=== PATIENT | male | born 1950 ===

== ENCOUNTER 2017-06-14 11:01 | Inpatient (IN) | payer OTHER ==
[~2017-06-14] VITALS: Ht 167.6 cm; Wt 90.7 kg
[2017-07-12] VITALS (11 sets, daily range): BP systolic 122–159; BP diastolic 71–89
[2017-07-12] MEDS ORDERED: ZOLOFT50 MG ORAL (11:32)
[2017-07-12] MEDS ORDERED: AMLODIPINE-BEN1 EACH ORAL (11:32)
[2017-07-12] MEDS ORDERED: ATORVASTATIN CA80 MG ORAL (11:32)
[2017-07-12] MEDS ORDERED: Bacitracin 50000 Units Vial ONE (12:08)
[2017-07-12] MEDS ORDERED: Ropivacaine 5mg/ml Vial 30ml INJ ONE (12:08)
[2017-07-12] MEDS ORDERED: Thrombin 5000 units TOPIC ONE (12:08)
[2017-07-12] MEDS ORDERED: Gelfoam Absorbable 1gm powder pkt TOPIC ONE (12:08)
[2017-07-12] MEDS ORDERED: Thrombin 5000 units spray kit TOPIC ONE (12:08)
--- NOTE | 2017-07-12 12:13 | Pre-Procedure Note/Attestation ---
Pre-Procedure Note/Attestation Complete Prior to Procedure Planned Procedure: not applicable Procedure Narrative: For L4-5 Anterior Decompression and Stablization Indications for Procedure Pre-Operative Diagnosis: Instability and Disc Herniation L4-5 Attestation I attest that I discussed the nature of the procedure; its benefits; risks and complications; and alternatives (and the risks and benefits of such alternatives ), prior to the procedure, with the patient (or the patient's legal insurance sales representative). I attest that, if there was a reasonable possibility of needing a blood transfusion, the patient (or the patient's legal insurance sales representative) was given the [facility] standardized written summary, pursuant to the Hero Mayte Blood Safety Act ([place] Health and Safety Code # 1645, as amended). I attest that I re-evaluated the patient just prior to the surgery and that there has been no change in the patient's H&P, except as documented below: LEELEE WOODRUFF Jul 12, 2017 12:13
--- NOTE | 2017-07-12 12:13 | Pre-Procedure Note/Attestation ---
Pre-Procedure Note/Attestation Complete Prior to Procedure Planned Procedure: not applicable Procedure Narrative: For L4-5 Anterior Decompression and Stablization Indications for Procedure Pre-Operative Diagnosis: Instability and Disc Herniation L4-5 Attestation I attest that I discussed the nature of the procedure; its benefits; risks and complications; and alternatives (and the risks and benefits of such alternatives ), prior to the procedure, with the patient (or the patient's legal underwriting service representative). I attest that, if there was a reasonable possibility of needing a blood transfusion, the patient (or the patient's legal underwriting service representative) was given the [facility] standardized written summary, pursuant to the Hero Mayte Blood Safety Act ([place] Health and Safety Code # 1645, as amended). I attest that I re-evaluated the patient just prior to the surgery and that there has been no change in the patient's H&P, except as documented below: LEELEE WOODRUFF Jul 12, 2017 12:13
--- NOTE | 2017-07-12 12:13 | Pre-Procedure Note/Attestation ---
Pre-Procedure Note/Attestation Complete Prior to Procedure Planned Procedure: not applicable Procedure Narrative: For L4-5 Anterior Decompression and Stablization Indications for Procedure Pre-Operative Diagnosis: Instability and Disc Herniation L4-5 Attestation I attest that I discussed the nature of the procedure; its benefits; risks and complications; and alternatives (and the risks and benefits of such alternatives ), prior to the procedure, with the patient (or the patient's legal solar manufacturer's representative). I attest that, if there was a reasonable possibility of needing a blood transfusion, the patient (or the patient's legal solar manufacturer's representative) was given the [facility] standardized written summary, pursuant to the Hero Mayte Blood Safety Act ([place] Health and Safety Code # 1645, as amended). I attest that I re-evaluated the patient just prior to the surgery and that there has been no change in the patient's H&P, except as documented below: LEELEE WOODRUFF Jul 12, 2017 12:13
[2017-07-12] MEDS ORDERED: Propofol 200mg/20ml IV ONE ×2 (12:19→13:00)
[2017-07-12] MEDS ORDERED: Heparin 5000 units/ml inj ONE (12:48)
--- NOTE | 2017-07-12 12:56 | Anethesia Preoperative Eval ---
Anesthesia Pre-op PMH/ROS General Date of Evaluation: Jul 12, 2017 Time of Evaluation: 12:51 Anesthesiologist: Yisel ASA Score: ASA 2 Mallampati Score Class I : Soft palate, uvula, fauces, pillars visible Class II: Soft palate, uvula, fauces visible Class III: Soft palate, base of uvula visible Class IV: Only hard plate visible Mallampati Classification: Class II Surgeon: oJse Diagnosis: Lumbar radiculopathy Surgical Procedure: ALDF L4-L5 Anesthesia History: none Family History: no anesthesia problems Allergies: Coded Allergies: No Known Allergies (Unverified , 06/10/17) Medications: see eMAR Past Medical History Cardiovascular: Reports: HTN - stable, Denies: CAD, PR, valve dz, arrhythmia, other Pulmonary: Denies: asthma, COPD, CARLITO, other Gastrointestinal/Genitourinary: Reports: GERD - mild, Denies: CRI, ESRD, other Neurologic/Psychiatric: Reports: depression/anxiety, other - chronic pain, Denies: dementia, CVA, TIA Endocrine: Denies: DM, hypothyroidism, steroids, other HEENT: Reports: cataract (L), cataract (R) - s/p bilateral Sx, Denies: glaucoma, QUILEUTE (L), QUILEUTE (R), other Hematology/Immune: Denies: anemia, DVT, bleeding disorder, other Musculoskeletal/Integumentary: Denies: OA, RA, DJD, DDD, edema, other Other: other - overweight PMH Narrative: as above PSxH Narrative: Bilateral cataracts, posterior lumbar spine Sx Anesthesia Pre-op Phys. Exam Physician Exam Last Vital Signs Date Time Temp Pulse Resp B/P (MAP) Pulse Ox O2 Delivery O2 Flow Rate FiO2 07/12/17 11:11 98.3 62 18 159/77 98 Room Air Constitutional: NAD Neurologic: CN 2-12 intact Cardiovascular: RRR Respiratory: CTA Gastrointestinal: S/NT/ND Airway Exam Mallampati Score: Class II MO: limited Neck: short ROM: limited Teeth: missing Dentures: upper - partial Anesthesia Pre-op A/P Labs see chart Studies Pre-op Studies: EKG - NSR, CXR - WNL Risk Assessment & Plan Assessment: ASA 2 Plan: GA with ETT Status Change Before Surgery: No Pre-Antibiotics Drug: Ancef 2 gr. Given Within 1 Hr of Incision: Yes Time Given: 13:25 TRAN SUTHERLAND M.D. Jul 12, 2017 12:55
--- NOTE | 2017-07-12 12:56 | Anethesia Preoperative Eval ---
Anesthesia Pre-op PMH/ROS General Date of Evaluation: Jul 12, 2017 Time of Evaluation: 12:51 Anesthesiologist: Yisel ASA Score: ASA 2 Mallampati Score Class I : Soft palate, uvula, fauces, pillars visible Class II: Soft palate, uvula, fauces visible Class III: Soft palate, base of uvula visible Class IV: Only hard plate visible Mallampati Classification: Class II Surgeon: Jose Diagnosis: Lumbar radiculopathy Surgical Procedure: ALDF L4-L5 Anesthesia History: none Family History: no anesthesia problems Allergies: Coded Allergies: No Known Allergies (Unverified , 06/10/17) Medications: see eMAR Past Medical History Cardiovascular: Reports: HTN - stable, Denies: CAD, [place], valve dz, arrhythmia, other Pulmonary: Denies: asthma, COPD, CARLITO, other Gastrointestinal/Genitourinary: Reports: GERD - mild, Denies: CRI, ESRD, other Neurologic/Psychiatric: Reports: depression/anxiety, other - chronic pain, Denies: dementia, CVA, TIA Endocrine: Denies: DM, hypothyroidism, steroids, other HEENT: Reports: cataract (L), cataract (R) - s/p bilateral Sx, Denies: glaucoma, CANTWELL (L), CANTWELL (R), other Hematology/Immune: Denies: anemia, DVT, bleeding disorder, other Musculoskeletal/Integumentary: Denies: OA, RA, DJD, DDD, edema, other Other: other - overweight PMH Narrative: as above PSxH Narrative: Bilateral cataracts, posterior lumbar spine Sx Anesthesia Pre-op Phys. Exam Physician Exam Last Vital Signs Date Time Temp Pulse Resp B/P (MAP) Pulse Ox O2 Delivery O2 Flow Rate FiO2 07/12/17 11:11 98.3 62 18 159/77 98 Room Air Constitutional: NAD Neurologic: CN 2-12 intact Cardiovascular: RRR Respiratory: CTA Gastrointestinal: S/NT/ND Airway Exam Mallampati Score: Class II MO: limited Neck: short ROM: limited Teeth: missing Dentures: upper - partial Anesthesia Pre-op A/P Labs see chart Studies Pre-op Studies: EKG - NSR, CXR - WNL Risk Assessment & Plan Assessment: ASA 2 Plan: GA with ETT Status Change Before Surgery: No Pre-Antibiotics Drug: Ancef 2 gr. Given Within 1 Hr of Incision: Yes Time Given: 13:25 TRAN SUTHERLAND M.D. Jul 12, 2017 12:55
--- NOTE | 2017-07-12 12:56 | Anethesia Preoperative Eval ---
Anesthesia Pre-op PMH/ROS General Date of Evaluation: Jul 12, 2017 Time of Evaluation: 12:51 Anesthesiologist: Yisel ASA Score: ASA 2 Mallampati Score Class I : Soft palate, uvula, fauces, pillars visible Class II: Soft palate, uvula, fauces visible Class III: Soft palate, base of uvula visible Class IV: Only hard plate visible Mallampati Classification: Class II Surgeon: Jose Diagnosis: Lumbar radiculopathy Surgical Procedure: ALDF L4-L5 Anesthesia History: none Family History: no anesthesia problems Allergies: Coded Allergies: No Known Allergies (Unverified , 06/10/17) Medications: see eMAR Past Medical History Cardiovascular: Reports: HTN - stable, Denies: CAD, [place], valve dz, arrhythmia, other Pulmonary: Denies: asthma, COPD, CARLITO, other Gastrointestinal/Genitourinary: Reports: GERD - mild, Denies: CRI, ESRD, other Neurologic/Psychiatric: Reports: depression/anxiety, other - chronic pain, Denies: dementia, CVA, TIA Endocrine: Denies: DM, hypothyroidism, steroids, other HEENT: Reports: cataract (L), cataract (R) - s/p bilateral Sx, Denies: glaucoma, CHILKOOT (L), CHILKOOT (R), other Hematology/Immune: Denies: anemia, DVT, bleeding disorder, other Musculoskeletal/Integumentary: Denies: OA, RA, DJD, DDD, edema, other Other: other - overweight PMH Narrative: as above PSxH Narrative: Bilateral cataracts, posterior lumbar spine Sx Anesthesia Pre-op Phys. Exam Physician Exam Last Vital Signs Date Time Temp Pulse Resp B/P (MAP) Pulse Ox O2 Delivery O2 Flow Rate FiO2 07/12/17 11:11 98.3 62 18 159/77 98 Room Air Constitutional: NAD Neurologic: CN 2-12 intact Cardiovascular: RRR Respiratory: CTA Gastrointestinal: S/NT/ND Airway Exam Mallampati Score: Class II MO: limited Neck: short ROM: limited Teeth: missing Dentures: upper - partial Anesthesia Pre-op A/P Labs see chart Studies Pre-op Studies: EKG - NSR, CXR - WNL Risk Assessment & Plan Assessment: ASA 2 Plan: GA with ETT Status Change Before Surgery: No Pre-Antibiotics Drug: Ancef 2 gr. Given Within 1 Hr of Incision: Yes Time Given: 13:25 TRAN SUTHERLAND M.D. Jul 12, 2017 12:55
[2017-07-12] MEDS ORDERED: Zemuron 50mg/5ml Inj IV ONE (13:00)
[2017-07-12] MEDS ORDERED: Midazolam 2mg/2ml Inj ONE (13:00)
[2017-07-12] MEDS ORDERED: Sterile Water Irrig 1000ml IRRIG ONE (13:00)
[2017-07-12] MEDS ORDERED: Neostigmine 1mg/ml 10ml Inj ONE (13:00)
[2017-07-12] MEDS ORDERED: Glycopyrrolate 0.2mg/ml 1ml Vial ONE (13:00)
[2017-07-12] MEDS ORDERED: Succinylcholine 20mg/ml 10ml vial ONE (13:00)
[2017-07-12] MEDS ORDERED: fentaNYL 100 mcg/2 mL IV ONE (13:00)
[2017-07-12] MEDS ORDERED: NS Irrig 1000ml ONE (13:00)
[2017-07-12] MEDS ORDERED: Ketorolac 30mg Inj ONE (13:00)
[2017-07-12] MEDS ORDERED: LR 1000ml ONE (13:00)
[2017-07-12] MEDS ORDERED: Morphine Sulfate 10mg/ml Inj ONE (13:00)
[2017-07-12] MEDS ORDERED: LR 1000ml 1,000 ML IVLG SCH (13:44)
[2017-07-12] MEDS ORDERED: Ketorolac 30mg Inj IV PRN (13:45)
[2017-07-12] MEDS ORDERED: Hydromorphone 0.5mg/0.5ml inj IVP PRN (13:45)
[2017-07-12] MEDS ORDERED: DiphenhydrAMINE 50mg/ml Inj IVP PRN (13:45)
[2017-07-12] MEDS ORDERED: Meperidine 50mg/ml Inj(FOR RIGORS ONLY) IV PRN (13:45)
[2017-07-12] MEDS ORDERED: PCA HYDROmorphone 1mg/ml 30 ML IV ONE (14:46)
--- NOTE | 2017-07-12 14:52 | Operative Note - PDOC ---
Operative Note Operative Note Pre-op Diagnosis: Instability and Disc Herniation L4-5 Procedure: ALIF L4-5 with internal fixation Post-op Diagnosis: same as pre-op Operative Findings: consistent w/pre-op dx studies Surgeon: Jose Machine Plug Shaper: KAYLAN Servin Additional Surgeons: Landa - Vascular Access Anesthesiologist: Yisel Anesthesia: general Specimen: yes Complications: none Condition: stable Estimated Blood Loss: minimal Drains: none Implant(s) used?: Yes - Devante InFix device, LEELEE Zavala Jul 12, 2017 14:52
[2017-07-12] MEDS ORDERED: Acetaminophen 650 MG SUPP RECTAL PRN (15:00)
[2017-07-12] MEDS ORDERED: Norco 5mg/325mg tab ORAL PRN (15:00)
[2017-07-12] MEDS ORDERED: Norco 7.5mg/325mg tab ORAL PRN (15:00)
[2017-07-12] MEDS ORDERED: Naloxone 0.4mg/ml Inj IVP PRN (15:00)
[2017-07-12] MEDS ORDERED: Rate Change PCA 1 Each MISC PRN ×2 (15:00→15:15)
[2017-07-12] MEDS ORDERED: HYDROmorphone 1mg/ml Carpuject IVP PRN (15:00)
[2017-07-12] MEDS ORDERED: PCA Education Pamphlet MISC ONE ×2 (15:00→15:15)
[2017-07-12] MEDS ORDERED: HYDROmorphone 1mg/ml Carpuject SUBQ PRN (15:00)
--- NOTE | 2017-07-12 15:02 | Immediate Post-Op Evaluation ---
Immediate Post-Op Evalulation Immediate Post-Op Evalulation Procedure: ALDF L4-L5 Date of Evaluation: Jul 12, 2017 Time of Evaluation: 15:01 IV Fluids: 1500 Blood Products: none Estimated Blood Loss: 100 Urinary Output: 150 Blood Pressure Systolic: 142 Blood Pressure Diastolic: 68 Pulse Rate: 74 Respiratory Rate: 20 O2 Sat by Pulse Oximetry: 99 Temperature (Fahrenheit): 98.5 Pain Score (1-10): 2 Nausea: No Vomiting: No Complications none Patient Status: reacts, patent, extubated, none Hydration Status: adequate TRAN SUTHERLAND M.D. Jul 12, 2017 15:02
[2017-07-12] MEDS: PCA HYDROmorphone 1mg/ml 30 ML IV PRN (15:22)
--- NOTE | 2017-07-12 16:32 | Diagnostic Imaging Report ---
Indication: Back pain Comparison: None Findings: Fluoroscopic views of the lumbar spine were obtained. Imaging showing localization than discectomy and prosthesis replacement at L4-5 disc. Impression: Intraoperative imaging
--- NOTE | 2017-07-12 18:45 | Operative Note - Dictated ---
DATE OF OPERATION: 07/12/2017 DICTATING PHYSICIAN: Martinez Landa M.D. VASCULAR SURGEON: Martinez Landa M.D. SPINE SURGEON: Kyler Garcia M.D. PREOPERATIVE DIAGNOSIS: Degenerative disk disease. POSTOPERATIVE DIAGNOSIS: Degenerative disk disease. PROCEDURE PERFORMED: Anterior retroperitoneal exposure of L4-L5 vertebral interspace. INDICATIONS: This is a very pleasant gentleman who is seen in my office prior to surgery. He has been carefully explained the risks of vascular surgery including possibility of vascular injury, deep venous thrombosis, and bleeding complications. DESCRIPTION OF FINDINGS: A vertical midline incision was used. A left retroperitoneal approach was used. There was no peritoneal or ureteral violation. There is no vascular injury. Blood loss was less than 50 mL and fluoroscopy was used to confirm the appropriate level prior to instrumentation. DESCRIPTION OF PROCEDURE: The patient was taken to the operating room, general anesthesia was used. Antibiotics were given. The patient's abdomen was prepped and draped. Appropriate time-out procedure was taken. A low vertical midline incision was made below the umbilicus. The anterior fascia was incised longitudinally midline. A plane identified posterior to the left rectus abdominis and developed posterolaterally towards the patient's left. The retroperitoneal space entered below the arcuate line and the peritoneum and ureter mobilized together towards the patient's right exposing the left common iliac artery and vein. The dissection was carried to the left side of left common iliac artery and vein. Overlying lymphatics were ligated with vascular clips. The iliolumbar vein with a small vessel was doubly ligated proximally and distally with vascular clips and divided and this allowed us to retract the left iliac artery and vein towards the patient's right and exposing the anterior surface of L4-L5. The Omni retractor was set in place. Shore blades were placed laterally and then fluoroscopy used to confirm the appropriate level. Instrumentation was then performed at L4-L5 as dictated separately. On completion, the retractors were then removed. The peritoneum and ureter were intact. The iliac vessels were intact. Anterior fascia was then closed using #1 PDS in a running fashion and skin subcutaneous tissue was closed with 3-0 Vicryl and 4-0 Monocryl running subcuticular closure technique. ESTIMATED BLOOD LOSS: Less than 100 mL. COMPLICATIONS: None. Martinez Landa M.D. DR: BOGDAN JOB#: [id number] CC:
--- NOTE | 2017-07-12 18:45 | Operative Note - Dictated ---
DATE OF OPERATION: 07/12/2017 FACILITY: [facility]. SURGEON: Kyler Garcia M.D. CO-SURGEON FOR VASCULAR APPROACH: Martinez Landa M.D. METAL STORAGE WORKER: SANDRO Chaves. ANESTHESIOLOGIST: Fransisco Morillo M.D. ANESTHESIA: General endotracheal with arterial blood pressure monitoring. PREOPERATIVE DIAGNOSES: Spondylolisthesis with flexion,extension, instability at L4-L5 as well as a significant disk bulge causing stenosis and neural foraminal encroachment. POSTOPERATIVE DIAGNOSES: Spondylolisthesis with flexion,extension, instability at L4-L5 as well as a significant disk bulge causing stenosis and neural foraminal encroachment. OPERATIVE PROCEDURE: Left pararectus retroperitoneal approach to the lumbar spine by Dr. Landa using a table fixed frame and reverse tip blades with mobilization of the aorta and vena cava and exposure of the anterior anulus of the L4-L5 lumbar disk. The patient then had an anterior annulotomy, nuclear diskectomy, and partial vertebrectomy along with bilateral neural foraminotomy, and microneurolysis. Open reduction and internal fixation was accomplished with a large footprint infix cage with 12 mm of height and 3+3 degrees of lordosis. Fusion was accomplished with bone protein and autogenous bone harvested during the decompression portion of the procedure. Image intensification was used to place the cages. Pulse oximetry was also used to monitor the vascular status of the lower extremities. The patient was prepped and draped supine on the operating table. A left-sided pararectus incision was made. The rectus was mobilized and the posterior sheath was followed down to the anterior spine. The aorta and vena cava were identified and retracted to expose the whole anterior curvature of the lumbar disk at the L4-L5 level. The center of the disk was marked and AP and lateral x-rays were taken. An anterior annulotomy was done with a 10-blade and the soft disk substance as well as the cartilaginous endplate was then removed progressively from front to back using angled and straight larger to smaller curettes, Kerrisons, and pituitaries. Lordotic distractors that were detachable replaced from side to side beginning at 8 and progressing to 12 mm. Dissection was carried to the back of the vertebral body with the PLL and posterior disk anulus was removed. A bilateral neural foraminotomy was accomplished. The space was distracted up to 12 mm. A 3+3 degrees of lordosis was added to create normal sagittal alignment. The two endplates were then tapped into place. The side struts were inserted, position was checked, and then the side struts were locked by cold welding. Bone protein and autogenous bone that had been harvested was then placed between the two plates. X-rays revealed that there was normal reconstitution of spinal alignment frontal and sagittal plane with good height and good overall lordosis. The wound was closed in layers including anterior posterior rectus sheath, subcutaneous and skin. Blood loss was not significant. The patient was placed in a bulky compression dressing and returned to recovery room in good condition. Kyler Garcia M.D. DR: DYLAN JOB#: [id number] CC:
[2017-07-12] MEDS ORDERED: PCA shift volume MISC SCH (19:00)
[2017-07-12] MEDS: PCA shift volume MISC SCH (19:30)
--- NOTE | 2017-07-12 20:45 | General Progress Note ---
Assessment/Plan Assessment/Plan Instability and Disc Herniation L4-5 ALIF L4-5 with internal fixation lumbar disc disease PLAN 1. incentive spirometry 2. DVT prophylaxis 3. PT evaluation and therapy 4. Hydration 5. Pain management 6. discharge once stable with outpatient follow up Subjective Allergies: Coded Allergies: No Known Allergies (Unverified , 06/10/17) Subjective WDWN NAD clear breath sounds bilaterally without rhonchi or wheeze [id number] without MRG no CCE nonfocal Objective Last 24 Hour Vital Signs Date Time Temp Pulse Resp B/P (MAP) Pulse Ox O2 Delivery O2 Flow Rate FiO2 07/12/17 17:12 14 07/12/17 16:42 14 07/12/17 16:12 14 07/12/17 16:00 97.6 07/12/17 16:00 97.0 63 14 146/85 98 Nasal Cannula 2.0 07/12/17 15:57 14 07/12/17 15:49 97.6 60 14 137/83 98 Nasal Cannula 3.0 07/12/17 15:45 14 07/12/17 15:40 59 16 137/83 98 Nasal Cannula 3.0 07/12/17 15:30 17 07/12/17 15:30 63 21 122/72 100 Nasal Cannula 3.0 07/12/17 15:22 15 07/12/17 15:20 60 18 133/77 100 Nasal Cannula 3.0 07/12/17 15:15 60 19 137/71 100 Nasal Cannula 3.0 07/12/17 15:05 62 16 134/75 100 Simple Mask 6.0 07/12/17 15:02 74 20 99 07/12/17 15:00 62 12 140/73 100 Simple Mask 6.0 07/12/17 14:56 98.9 62 14 141/83 100 Simple Mask 6.0 07/12/17 11:11 98.3 62 18 159/77 98 Room Air Intake and Output 07/12/17 07/13/17 19:00 07:00 Intake Total 1940 ml Output Total 500 ml 200 ml Balance 1440 ml -200 ml Intake Oral 240 ml IV Total 1700 ml Output Urine Total 450 ml 200 ml Estimated Blood Loss 50 ml # Voids 4 Height (Feet): 5 Height (Inches): 6.00 Weight (Pounds): 200 EDGARDO AMOS Jul 12, 2017 20:45
[2017-07-12] MEDS: ceFAZolin sod 1 GM in D5W 55 ML IV SCH (21:42)
[2017-07-13] VITALS: BP 153/84
[2017-07-13 04:00] VITALS: BP 133/77
[2017-07-13] MEDS: ceFAZolin sod 1 GM in D5W 55 ML IV SCH ×2 (05:00→13:51)
[2017-07-13] MEDS: PCA shift volume MISC SCH ×2 (07:23→19:30)
[2017-07-13 08:41] VITALS: BP 149/76
--- NOTE | 2017-07-13 08:44 | 48 Hour Post Anesthesia Eval ---
Post Anesthesia Evaluation Procedure: ALDF L4-L5 Date of Evaluation: Jul 13, 2017 Time of Evaluation: 13:30 Blood Pressure Systolic: 133 0: 77 Pulse Rate: 80 Respiratory Rate: 20 Temperature (Fahrenheit): 98.5 O2 Sat by Pulse Oximetry: 98 Airway: patent Nausea: No Vomiting: No Pain Intensity: 2 Hydration Status: adequate Cardiopulmonary Status: Stable Mental Status/LOC: patient returned to baseline Follow-up Care/Observations: As per surgery Post-Anesthesia Complications: No anesthetic complication Follow-up care needed: N/A NAZARIO GUIDRY M.D. Jul 13, 2017 08:44
--- NOTE | 2017-07-13 09:38 | General Progress Note ---
Assessment/Plan Assessment/Plan Instability and Disc Herniation L4-5 ALIF L4-5 with internal fixation lumbar disc disease PLAN 1. incentive spirometry 2. DVT prophylaxis 3. PT evaluation and therapy 4. Hydration and advance diet per surgery 5. Pain management 6. discharge once stable with outpatient follow up Subjective Allergies: Coded Allergies: No Known Allergies (Unverified , 06/10/17) Subjective WDWN NAD clear breath sounds bilaterally without rhonchi or wheeze [id number] without MRG no CCE nonfocal Objective Last 24 Hour Vital Signs Date Time Temp Pulse Resp B/P (MAP) Pulse Ox O2 Delivery O2 Flow Rate FiO2 07/13/17 08:44 80 20 98 07/13/17 08:41 98.2 80 20 149/76 94 Nasal Cannula 2.0 07/13/17 04:00 98.5 80 20 133/77 98 Nasal Cannula 2.5 07/13/17 04:00 16 07/13/17 00:00 16 07/13/17 00:00 98.3 79 18 153/84 98 Nasal Cannula 2.5 07/12/17 20:00 98.1 71 18 154/89 99 Room Air 07/12/17 20:00 16 07/12/17 17:12 14 07/12/17 16:42 14 07/12/17 16:12 14 07/12/17 16:00 97.6 07/12/17 16:00 97.0 63 14 146/85 98 Nasal Cannula 2.0 07/12/17 15:57 14 07/12/17 15:49 97.6 60 14 137/83 98 Nasal Cannula 3.0 07/12/17 15:45 14 07/12/17 15:40 59 16 137/83 98 Nasal Cannula 3.0 07/12/17 15:30 17 07/12/17 15:30 63 21 122/72 100 Nasal Cannula 3.0 07/12/17 15:22 15 07/12/17 15:20 60 18 133/77 100 Nasal Cannula 3.0 07/12/17 15:15 60 19 137/71 100 Nasal Cannula 3.0 07/12/17 15:05 62 16 134/75 100 Simple Mask 6.0 07/12/17 15:02 74 20 99 07/12/17 15:00 62 12 140/73 100 Simple Mask 6.0 07/12/17 14:56 98.9 62 14 141/83 100 Simple Mask 6.0 07/12/17 11:11 98.3 62 18 159/77 98 Room Air Height (Feet): 5 Height (Inches): 6.00 Weight (Pounds): 200 EDGARDO AMOS Jul 13, 2017 09:38
[2017-07-13] MEDS: Sertraline 50mg tab ORAL SCH (09:59)
[2017-07-13] MEDS: Benazepril 10mg tab ORAL SCH (10:00)
[2017-07-13] MEDS: DiphenhydrAMINE 50mg/ml Inj IVP PRN ×2 (10:00→22:19)
[2017-07-13 12:15] VITALS: BP 154/79
[2017-07-13] MEDS: PCA HYDROmorphone 1mg/ml 30 ML IV PRN (15:27)
[2017-07-13 16:23] VITALS: BP 116/69
[2017-07-13 20:08] VITALS: BP 147/81
[2017-07-13] MEDS: Atorvastatin 80mg tab ORAL SCH (20:40)
[2017-07-13] MEDS: Norco 7.5mg/325mg tab ORAL PRN (20:42)
[2017-07-14] VITALS (7 sets, daily range): BP systolic 125–163; BP diastolic 72–95
[2017-07-14] MEDS: PCA shift volume MISC SCH (07:19)
[2017-07-14] MEDS: Sertraline 50mg tab ORAL SCH (09:05)
[2017-07-14] MEDS: Benazepril 10mg tab ORAL SCH (09:06)
[2017-07-14] MEDS: DiphenhydrAMINE 50mg/ml Inj IVP PRN (09:07)
[2017-07-14] MEDS ORDERED: Tubing IV Secondary IV ONE (11:03)
--- NOTE | 2017-07-14 13:11 | General Surgery Progress Note ---
General Surgery-Progress Note Subjective Procedure Performed ALIF L4-5 with internal fixation Symptoms: improved Objective Last 24 Hour Vital Signs Date Time Temp Pulse Resp B/P (MAP) Pulse Ox O2 Delivery O2 Flow Rate FiO2 07/14/17 12:00 98.9 77 19 155/90 96 Room Air 07/14/17 09:06 132/72 07/14/17 09:05 80 132/72 07/14/17 08:00 98.3 80 17 132/72 94 Room Air 07/14/17 04:39 99.7 72 19 139/77 95 Room Air 07/14/17 04:00 18 07/14/17 00:17 99.1 79 21 142/78 96 Room Air 07/14/17 00:00 18 07/13/17 20:08 99.6 86 20 147/81 96 Room Air 07/13/17 20:00 18 07/13/17 16:23 97.8 75 20 116/69 96 Room Air 07/13/17 15:30 18 Dressing: dry Wound: clean Drains: none Additional Comments Patient is tolerating regular diet, pain controlled with oral medication. He has completed PT / OT training. Patient ready for discharge from orthopedic standpoint. LEELEE Lee Jul 14, 2017 13:11
[2017-07-14] MEDS: Norco 7.5mg/325mg tab ORAL PRN (19:31)
[2017-07-14] MEDS: Atorvastatin 80mg tab ORAL SCH (21:26)
[2017-07-15 04:00] VITALS: BP 119/79
[2017-07-15] MEDS: Sertraline 50mg tab ORAL SCH (08:23)
[2017-07-15] MEDS: Norco 7.5mg/325mg tab ORAL PRN (08:25)
[2017-07-15] MEDS: Benazepril 10mg tab ORAL SCH (08:26)
[2017-07-15 08:49] VITALS: BP 143/70
--- NOTE | 2017-07-15 09:15 | General Progress Note ---
Assessment/Plan Assessment/Plan Instability and Disc Herniation L4-5 ALIF L4-5 with internal fixation lumbar disc disease PLAN 1. incentive spirometry 2. DVT prophylaxis 3. PT evaluation and therapy 4. tolerating diet 5. Pain management 6. discharge today Subjective Allergies: Coded Allergies: No Known Allergies (Unverified , 06/10/17) Subjective WDWN NAD clear breath sounds bilaterally without rhonchi or wheeze [id number] without MRG no CCE nonfocal tolerating diet Objective Last 24 Hour Vital Signs Date Time Temp Pulse Resp B/P (MAP) Pulse Ox O2 Delivery O2 Flow Rate FiO2 07/15/17 08:49 97.9 73 20 143/70 98 Room Air 07/15/17 08:26 119/79 07/15/17 08:25 75 119/79 07/15/17 04:00 98.0 75 18 119/79 98 Room Air 07/14/17 23:55 98.8 73 18 125/75 96 Room Air 07/14/17 20:30 98.4 07/14/17 20:00 98.4 92 19 163/84 95 Room Air 07/14/17 16:00 97.6 87 18 156/95 96 Room Air 07/14/17 12:00 98.9 77 19 155/90 96 Room Air 07/14/17 12:00 18 Height (Feet): 5 Height (Inches): 6.00 Weight (Pounds): 200 EDGARDO AMOS Jul 15, 2017 09:15
[2017-07-15 12:05] VITALS: BP 144/77
[2017-07-15 15:46] VITALS: BP 136/79
--- NOTE | 2017-07-16 13:06 | Discharge Summary ---
Discharge Summary Hospital Course Date of Admission Jul 12, 2017 at 10:35 Date of Discharge Jul 15, 2017 at 16:20 Admitting Diagnosis CHELSI Schmidt is a 67 year old male who was admitted on Jul 12, 2017 at 10:35 for Radiculopathy Hospital Course [id number] Discharge Discharge Disposition Patient was discharged to Home (01) Discharge Diagnoses: Natalya Savage NP Jul 16, 2017 13:06
--- NOTE | 2017-07-16 13:06 | Discharge Summary ---
Discharge Summary Hospital Course Date of Admission Jul 12, 2017 at 10:35 Date of Discharge Jul 15, 2017 at 16:20 Admitting Diagnosis CHELSI Schmidt is a 67 year old male who was admitted on Jul 12, 2017 at 10:35 for Radiculopathy Hospital Course [id number] Discharge Discharge Disposition Patient was discharged to Home (01) Discharge Diagnoses: Natalya Savage NP Jul 16, 2017 13:06
--- NOTE | 2017-07-16 13:06 | Discharge Summary ---
Discharge Summary Hospital Course Date of Admission Jul 12, 2017 at 10:35 Date of Discharge Jul 15, 2017 at 16:20 Admitting Diagnosis CHELSI Schmidt is a 67 year old male who was admitted on Jul 12, 2017 at 10:35 for Radiculopathy Hospital Course [id number] Discharge Discharge Disposition Patient was discharged to Home (01) Discharge Diagnoses: Natalya Savage NP Jul 16, 2017 13:06
--- NOTE | 2017-07-17 02:00 | Discharge Summary 2 SIG ---
DATE OF ADMISSION: 07/12/2017 DATE OF DISCHARGE: 07/13/2017 SURGEON: Kyler Garcia M.D. BRIEF HOSPITAL COURSE: The patient is a 67-year-old male who was diagnosed with spondylolisthesis with flexion, extension, and instability of L4-L5 as well as significant disk bulge causing stenosis and neural foraminal encroachment, was admitted on 07/12/2017 and underwent ALIF on L4-L5 with internal fixation, performed by Dr. Garcia, and assisted by Dr. Landa, performing anterior retroperitoneal exposure of L4-L5 vertebral interspace. Postoperatively, the patient was admitted for postoperative care and was given DVT prophylaxis with SCDs. He was continued with IV hydration and was given pain management, Dilaudid subcutaneous and [place]. He was continued on Lipitor and Zoloft and was given amlodipine and Lotensin for blood pressure control. He was encouraged use of incentive spirometry. Diet was eventually advanced. He underwent physical therapy. Marrero catheter was discontinued and the patient was eventually discharged home to follow up with Dr. Garcia as an outpatient. FINAL DIAGNOSIS: Instability and disk herniation L4-L5, status post anterior lumbar interbody fusion L4-L5 with internal fixation. DISPOSITION: The patient was discharged home. DISCHARGE MEDICATIONS: Continue with pain meds prn. DISCHARGE INSTRUCTIONS: Follow up with Dr. Garcia in a week. Blayne Donald M.D. I have been assigned to dictate discharge summary on this account and I was not involved in the patient's management. Natalya Savage NFrancisco DR: Bing JOB#: [id number] CC: FREDERIC
== END 2017-07-15 16:20 | disposition home or self-care (01) | DRG 460 ==
LOC: 4W 07-12 10:35 → 3E 07-12 14:48
DX: M51.16 Intervertebral disc disorders with radiculopathy, lumbar region (principal); I10 Essential (primary) hypertension; M43.16 Spondylolisthesis, lumbar region; M53.2X6 Spinal instabilities, lumbar region; M48.061 Spinal stenosis, lumbar region without neurogenic claudication; E78.00 Pure hypercholesterolemia, unspecified; F32.9 Major depressive disorder, single episode, unspecified; N40.0 Benign prostatic hyperplasia without lower urinary tract symptoms
CPT/HCPCS: 36415; 72020; 76001; 86850; 86900; 86901; 87081; 94003; 94150; J2250; J2710

== ENCOUNTER 2018-09-23 08:02 | Day surgery (SDC) | payer OTHER ==
[~2018-09-23] VITALS: Ht 167.6 cm; Wt 90.7 kg
[2018-09-23] VITALS (8 sets, daily range): BP systolic 127–151; BP diastolic 71–90
--- NOTE | 2018-09-23 06:40 | Anethesia Preoperative Eval ---
Anesthesia Pre-op PMH/ROS General Date of Evaluation: Sep 23, 2018 Time of Evaluation: 06:38 Anesthesiologist: hank ASA Score: ASA 3 Mallampati Score Class I : Soft palate, uvula, fauces, pillars visible Class II: Soft palate, uvula, fauces visible Class III: Soft palate, base of uvula visible Class IV: Only hard plate visible Mallampati Classification: Class II Surgeon: clayton Diagnosis: gerd Surgical Procedure: egd Anesthesia History: none Social History: smoking - nonsmoker Family History: no anesthesia problems Allergies: Coded Allergies: No Known Allergies (Unverified , 06/10/17) Medications: see eMAR Patient NPO?: Yes Past Medical History Cardiovascular: Reports: HTN, other - hypercholesterolemia Gastrointestinal/Genitourinary: Reports: GERD, other - gastritis Neurologic/Psychiatric: Reports: depression/anxiety Musculoskeletal/Integumentary: Reports: OA, other - back pain PSxH Narrative: back sx, cataract sx Anesthesia Pre-op Phys. Exam Physician Exam Last Vital Signs Date Time Temp Pulse Resp B/P (MAP) Pulse Ox O2 Delivery O2 Flow Rate FiO2 09/23/18 08:50 Room Air 09/23/18 08:30 97.6 50 20 149/77 99 Constitutional: NAD Neurologic: CN 2-12 intact Cardiovascular: RRR Respiratory: CTA Gastrointestinal: S/NT/ND Airway Exam Mallampati Score: Class II MO: limited Neck: flexible TMD: 2fb ROM: limited Teeth: missing Dentures: upper, lower Anesthesia Pre-op A/P Risk Assessment & Plan Assessment: asa3 Plan: mac Status Change Before Surgery: No Pre-Antibiotics Drug: Ave Kraft MD Sep 23, 2018 06:40
--- NOTE | 2018-09-23 07:50 | Short Stay Surgery H&P ---
History of Present Illness History of Present Illness Chief Complaint abdominal pains/GERDs. CHELSI Schmidt is a 68 year old male who was admitted on for GERDS/abdominal pains Patient History Allergies: Coded Allergies: No Known Allergies (Unverified , 06/10/17) PAST MEDICAL HISTORY: (1) Hypertension (2) Hyperlipidemia Past Surgeries: (1) Postlaminectomy syndrome of lumbar region Medication History Scheduled Amlodipine Besylate/Benazepril* (Amlodipine-Benazepril 10-20 Mg*), 1 CAP ORAL DAILY, (Reported) Atorvastatin Calcium* (Lipitor*), 80 MG ORAL BEDTIME, (Reported) Lisinopril (Lisinopril*), 20 MG ORAL DAILY, (Reported) Sertraline Hcl* (Zoloft*), 50 MG ORAL DAILY, (Reported) Triamterene/Hydrochlorothiazid (Triamterene-Hctz 37.5-25 Mg Cp), 1 CAP ORAL DAILY, (Reported) Review of Systems Cardiovascular: Reports: no symptoms Respiratory: Reports: no symptoms Skeletal: Reports: spinal disc disease Gastrointestinal: Reports: gastro esophageal reflux disease Genitourinary: Reports: no symptoms Neurologic: Reports: no symptoms Endocrine: Reports: no symptoms Physical Exam Skin: normal HENT: normal Heart: normal Lungs: normal Abdomen: abnormal Extremities: normal Genitourinary: normal Plan Plan of Care Upper GI. endoscopy and biopsy. Preop Interventions None. Summary of Findings See the reports Attestation Are the patient's medical conditions optimized for surgery? Attestation Response: yes Simón Lepe MD Sep 23, 2018 07:50
--- NOTE | 2018-09-23 07:51 | Pre-Procedure Note/Attestation ---
Pre-Procedure Note/Attestation Complete Prior to Procedure Planned Procedure: left Procedure Narrative: The examination of the upper GI. tract via endoscopy Indications for Procedure Pre-Operative Diagnosis: R/O Gastritis/ Peptic ulcer Attestation I attest that I discussed the nature of the procedure; its benefits; risks and complications; and alternatives (and the risks and benefits of such alternatives ), prior to the procedure, with the patient (or the patient's legal sales account representative). I attest that, if there was a reasonable possibility of needing a blood transfusion, the patient (or the patient's legal sales account representative) was given the [facility] standardized written summary, pursuant to the [place] Blood Safety Act ([place] Health and Safety Code # 1645, as amended). I attest that I re-evaluated the patient just prior to the surgery and that there has been no change in the patient's H&P, except as documented below: Simón Lepe MD Sep 23, 2018 07:51
[~2018-09-23 08:02] MED LIST: AMLODIPINE-BEN1 EACH ORAL; ATORVASTATIN CA80 MG ORAL; Atropine Inj 1mg/10ml Syr IV PRN; DiphenhydrAMINE 50mg/ml Inj IVP PRN; LISINOPRIL20 MG ORAL; LR 1000ml 1,000 ML IVLG SCH; Midazolam 2mg/2ml Inj IVP PRN; TRIAMTERENE-HC1 EAC7 ORAL; ZOLOFT50 MG ORAL; fentaNYL 100 mcg/2 mL IV PRN
[2018-09-23] MEDS ORDERED: Propofol 200mg/20ml IV ONE (08:30)
[2018-09-23] MEDS ORDERED: Lidocaine 1% MPF 10mg/ml 5ml ONE (08:30)
--- NOTE | 2018-09-23 08:35 | NUR ---
IV LR WAS STARTED BY FEDERICA ALMODOVAR RN. NO S/S OF INFILTRATION.
--- NOTE | 2018-09-23 09:06 | Endoscopy Procedure Note ---
Endoscopy Procedure Note General Indication for Procedure: Abdominal pains/ GERD Procedures Performed: EGD - Completely normal Upper GI.Endoscopy. Biopsies obtained from gastric body and GE junction. Specimen: yes Pt Tolerated Procedure Well: Yes Estimated Blood Loss: none Anesthesia Anesthesiologist: DR. Bony Rosales Anesthesia: moderate sedation Medications Medication Given: see anesthesia record Inserted Devices Implant(s) used?: No Quality Quality of Bowel Preparation: Excellent Was there any complications?: No GI Core Measures 50 yrs or older w/o bx or poly: Not Applicable 10yrs. F/U not recommended: Not Applicable If not recommended, why?: Med reason:<3 yrs.: System Reason:<3 yrs.: Simón Lepe MD Sep 23, 2018 09:06
--- NOTE | 2018-09-23 09:07 | Discharge Instructions ---
Discharge Instructions Discharge Instructions Follow up with: See the doctor in office after 2 weeks/call first For Congestive Heart Failure Reminder Report to your physician any weight gain of 5 pounds or more in one week. Simón Lepe MD Sep 23, 2018 09:07
--- NOTE | 2018-09-23 09:32 | Immediate Post-Op Evaluation ---
Immediate Post-Op Evalulation Immediate Post-Op Evalulation Procedure: egd w/bx Date of Evaluation: Sep 23, 2018 Time of Evaluation: 09:28 IV Fluids: 150ml 0.9ns Blood Products: none Estimated Blood Loss: negligible Urinary Output: Blood Pressure Systolic: 127 Blood Pressure Diastolic: 79 Pulse Rate: 57 Respiratory Rate: 18 O2 Sat by Pulse Oximetry: 98 Temperature (Fahrenheit): 97.3 Pain Score (1-10): 0 Nausea: No Vomiting: No Complications none Patient Status: awake, reacts, patent Hydration Status: adequate Drug: Ave Kraft MD Sep 23, 2018 09:32
--- NOTE | 2018-09-23 09:33 | 48 Hour Post Anesthesia Eval ---
Post Anesthesia Evaluation Procedure: egd w/bx Date of Evaluation: Sep 23, 2018 Time of Evaluation: 09:32 Blood Pressure Systolic: 138 0: 85 Pulse Rate: 56 Respiratory Rate: 18 Temperature (Fahrenheit): 97.3 O2 Sat by Pulse Oximetry: 99 Airway: patent Nausea: No Vomiting: No Pain Intensity: 0 Hydration Status: adequate Cardiopulmonary Status: stable Mental Status/LOC: patient returned to baseline Post-Anesthesia Complications: none Follow-up care needed: N/A Ave Perrin MD Sep 23, 2018 09:33
--- NOTE | 2018-09-23 09:45 | Pre-op HX & Phy Repo 2 SIG ---
DATE OF ADMISSION: 09/23/2018 HISTORY OF PRESENT ILLNESS: This patient is being seen prior to undergoing the procedure for upper GI endoscopy for which he has been scheduled to receive for evaluation of his gastrointestinal conditions that he has suffered subsequent to his work injury. Please note that this examination had to be done for the patient prior to undergoing the procedure for upper GI endoscopy to get a clearance medically. This patient was seen in my office approximately a couple of months ago complaining of abdominal pain, which was mostly located over upper part of the abdomen. At this time, the patient reported that he has been taking significant number of medications including ibuprofen that he had to take for the control of his pain that he has suffered subsequent to his work injury. He reports that these pains are occurring after eating and particularly after taking these medications. He also did complain of nausea, but there was no any complaint of vomiting at this time. He is also experiencing pain in the upper part of the abdomen. He reports to me that he has been taking the medications such as omeprazole in the past and also Tums. He also takes anti-acids. He reports to me that he has also had lost some weight subsequent to his work injury. At this time, he denies having any difficulty swallowing. There is no history of any bleeding from gastrointestinal tract such as hematemesis, melena, or hematochezia. As I mentioned, he had been taking nonsteroidal anti-inflammatory agents subsequent to his injury that occurred in 2012. He also denies having any regurgitation at this point. The patient reported to me that he never had any gastrointestinal conditions before being injured at job site and being started on anti-inflammatory agents and strong analgesics. Basically his condition at work was that he was injured at job site that happened in 2012. 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 His pains basically was located over the lower part of the back area consistent with dorsolumbar disk disease for which he finally received surgery. PAST MEDICAL HISTORY: The patient has had history of hypertension and hyperlipidemia. Otherwise, none significant. He denies diabetes, arthritis etc. PAST SURGICAL HISTORY: The patient has history of surgery for dorsolumbar disk as I mentioned, which was done in 2016. ALLERGIES: None significant. FAMILY HISTORY: Basically none significant and the applicant is . HABITS: He denies drinking alcohol or smoking cigarettes. MEDICATIONS: Current medications are lisinopril, aspirin, gabapentin, codeine, finasteride, Fexmid for muscle spasm, atorvastatin, amlodipine, and oxybutynin that he takes for bladder conditions. REVIEW OF SYSTEMS: Basically history of present illness. The patient currently is complaining of experiencing pain over the lower back area. He denies any palpitation, chest pain, angina, etc. No shortness of breath, or cough, or asthma. PHYSICAL EXAMINATION: GENERAL: At this time reveals alert and oriented gentleman, who does not seem to be in any acute distress. He responds to questions quite properly. VITAL SIGNS: All stable. HEENT: Normocephalic. Pupils are equal in size and reactive to light and accommodation. No jaundice. NECK: Supple. No JVD, thyromegaly, or adenopathy. CHEST: Clear to auscultation and percussion. No rales or rhonchi. HEART: S1, S2 normal. Regular rhythm. No gallops or murmur. ABDOMEN: Soft, but there are areas of tenderness on palpation mostly over the upper part of the abdomen. There is no hepatosplenomegaly. Bowel sounds are present. No masses noted. EXTREMITIES: Unremarkable. SKIN: Nonsignificant. LYMPHATICS: Nonsignificant. INITIAL PREOPERATIVE DIAGNOSES: 1. Abdominal pain of uncertain etiology, rule out peptic ulcer disease, gastritis caused by NSAID medications, rule out esophagitis. 2. Hypertension and hyperlipidemia, stable. 3. History of bodily injury, work-related. RECOMMENDATIONS: This patient at this time seems to be quite stable to undergo the procedure for upper GI endoscopy as he has been scheduled for. He understands the risks and benefits and will sign the consent. Said Tacho Lepe DR: ISATU JOB#: [id number] CC:
--- NOTE | 2018-09-23 10:00 | Operative Note - Dictated ---
DATE OF OPERATION: 09/23/2018 SURGEON: Simón Lepe M.D. ANESTHESIOLOGIST: Dr. Rueda. PROCEDURE: Esophagogastroduodenoscopy with biopsy. PREOPERATIVE DIAGNOSES: Abdominal pain, history of chronic gastroesophageal reflux, rule out peptic ulcer disease, gastritis. POSTOPERATIVE DIAGNOSIS: Completely normal upper GI endoscopy. Biopsy was obtained from GE junction and gastric body. MEDICATION USED: Per Dr. Rueda. INSTRUMENT: GIF Olympus upper GI video endoscope. DESCRIPTION OF PROCEDURE: The patient after arriving in endoscopy unit, was told about risks and benefits of the procedure which he accepted and signed informed consent. He was then put on the left lateral decubitus position. After adequate IV sedation, the scope was gently passed through the cricopharyngeal area, was lodged into the upper esophagus, and was gradually advanced towards gastroesophageal junction. The entire length of the esophagus was completely normal. No evidence of inflammatory process, ulceration, exudate, stricture, etc., was found. At this time, the scope was advanced towards the GE junction which looked normal without any evidence of major Mcadams's or hiatal hernia. At this time, the scope was advanced into the stomach and gastric cavity was distended with insufflation of air. Gradually, the areas of the fundus, the body, and the antrum of the stomach were examined which looked completely normal with normal mucosa and no evidence of ulcers, tumors, bleeding sites, etc. A retroflexion maneuver was also applied and the area of the GE junction was examined which revealed no other abnormalities. Gradually, the scope was advanced further down into the antrum and from there into the pylorus. First and second portion of duodenum were also found to be completely normal. At this point, the scope was pulled back into the stomach. One random biopsy was obtained from gastric body and gradually the scope was pulled out and another biopsy was obtained at the GE junction. The patient tolerated the procedure well and left the endoscopy room in a good condition. Simón Lepe M.D. DR: Betito JOB#: [id number] CC:
== END 2018-09-23 11:00 | disposition home or self-care (01) ==
LOC: GAS 08:02
DX: K29.50 Unspecified chronic gastritis without bleeding (principal); K21.9 Gastro-esophageal reflux disease without esophagitis; I10 Essential (primary) hypertension; E78.5 Hyperlipidemia, unspecified; E78.00 Pure hypercholesterolemia, unspecified; F32.9 Major depressive disorder, single episode, unspecified; F41.9 Anxiety disorder, unspecified; Z79.82 Long term (current) use of aspirin; Z79.899 Other long term (current) drug therapy
CPT/HCPCS: 43239; J2704; 94003; 94150